=== PATIENT | female | born 2000 | race Caucasian/White ===

== ENCOUNTER 2018-10-09 23:31 | Emergency (ER) | payer MEDICAID ==
[~2018-10-09] VITALS: Ht 167.6 cm; Wt 84.1 kg
[2018-10-09] MEDS ORDERED: metoprolol tartrate 50mg tablet PO ONE (23:55)
[2018-10-10] MEDS: metoprolol tartrate 1mg/ml inj IV SCH ×3 (00:09→00:25)
[2018-10-10 00:15] LABS: URINE HCG NEGATIVE (NEG)
--- NOTE | 2018-10-10 00:18 | NUR ---
PT TOOK OWN 12.5 MG METROPOLOL TABLET DUE TO THE HOSPITAL NOT HAVING A LOWER DOSE TABLET.
[2018-10-10 00:25] LABS: PARTIAL THROMBOPLASTIN TIME 31 SECONDS (22-32); PROTHROMBIN TIME 10.2 SECONDS (9.0-12.0)
[2018-10-10 00:26] LABS: ALANINE AMINOTRANSFERASE 24 U/L (12-78); ALBUMIN 3.9 G/DL (3.4-5.0); ALKALINE PHOSPHATASE 61 IU/L (20-180); ANION GAP 10 (8-16); ASPARTATE AMINO TRANSFERASE 16 U/L (10-37); BILIRUBIN,TOTAL 0.2 MG/DL (0.1-1.0); BLOOD UREA NITROGEN 9 MG/DL (7-18); BUN/CREATININE RATIO 10.8 (6.6-38.0); CALCIUM 9.1 MG/DL (8.5-10.1); CHLORIDE 104 MMOL/L (99-107); CREATININE 0.83 MG/DL (0.40-0.90); GLUCOSE 115 MG/DL (70-104); POTASSIUM 3.4 MMOL/L (3.5-5.1); SODIUM 139 MMOL/L (135-145); TOTAL CARBON DIOXIDE 25.2 MMOL/L (24-32); TOTAL PROTEIN 7.9 G/DL (6.4-8.2); eGFR 88 ML/MIN
[2018-10-10 00:28] LABS: URINE AMPHETAMINE SCREEN NEGATIVE (Neg); URINE BARBITUATE SCREEN NEGATIVE (Neg); URINE BENZODIAZEPINES SCREEN NEGATIVE (Neg); URINE CANNABINOID SCREEN NEGATIVE (Neg); URINE COCAINE SCREEN NEGATIVE (Neg); URINE METHADONE SCREEN NEGATIVE (Neg); URINE OPIATE SCREEN NEGATIVE (Neg); URINE PHENCYCLIDINE SCREEN NEGATIVE (Neg)
[2018-10-10 00:45] LABS: BASOPHILS # (AUTO) 0.1 X10'3 (0-0.2); BASOPHILS % (AUTO) 0.8 % (0-1); EOSINOPHILS # (AUTO) 0.3 X10'3 (0-0.9); EOSINOPHILS % (AUTO) 4.7 % (0-6); HEMATOCRIT 40.7 % (35.0-45.0); HEMOGLOBIN 13.5 g/dl (12.0-16.0); LYMPHOCYTES # (AUTO) 3.1 X10'3 (1.1-4.8); LYMPHOCYTES % (AUTO) 44.3 % (21-51); MEAN CORPUSCULAR HEMOGLOBIN 29.4 PG (27.0-31.0); MEAN CORPUSCULAR HGB CONC 33.1 g/dL (33.0-36.5); MEAN CORPUSCULAR VOLUME 88.7 FL (78-98); MEAN PLATELET VOLUME 7.5 FL (7.4-10.4); MONOCYTES # (AUTO) 0.5 X10'3 (0-0.9); MONOCYTES % (AUTO) 6.3 % (2-12); NEUTROPHILS # (AUTO) 3.2 X10'3 (1.8-7.7); NEUTROPHILS % (AUTO) 43.9 % (42-75); PLATELET COUNT 343 X10'3 (140-440); RED BLOOD COUNT 4.58 X10'6 (4.20-5.60); RED CELL DISTRIBUTION WIDTH 12.4 % (11.5-14.5); WHITE BLOOD COUNT 7.2 X10'3 (4.5-11.0)
[2018-10-10 01:27] LABS: MAGNESIUM 2.2 MG/DL (1.5-2.4)
[2018-10-10 01:28] LABS: ETHANOL < 0.010 GM/DL (0.0-0.010)
[2018-10-10] MEDS ORDERED: magnesium oxide 400mg tablet PO ONE (01:30)
[2018-10-10] MEDS ORDERED: potassium Cl 20 mEq SR tablet PO ONE (01:30)
--- NOTE | 2018-10-10 01:44 | NUR ---
RESTING QUIETLY, NO CHANGES IN STATUS, SEEMS A LITTLE ANXIOUS, STATES, "FEELING WEAK". VITALS STABLE.
[2018-10-10] MEDS ORDERED: POTA20TA19 PO (01:57)
[2018-10-10 02:04] VITALS: BP 118/73
== END 2018-10-10 02:06 | disposition home or self-care (01) ==
LOC: ER 23:33
DX: R00.0 Tachycardia, unspecified (principal); E87.6 Hypokalemia; R42 Dizziness and giddiness; R11.0 Nausea; R51 Headache; R00.2 Palpitations; R06.02 Shortness of breath; Z79.899 Other long term (current) drug therapy; Z86.718 Personal history of other venous thrombosis and embolism
CPT/HCPCS: 36415; 71045; 80053; 80305; 80320; 81025; 83735; 84443; 84484; 85025; 85610; 85730; 93005; 96374; 99284; J3490